=== PATIENT | female | born 1960 | race Hispanic/Latino ===

== ENCOUNTER 2022-09-08 09:56 | Emergency (ER) | payer OTHER | END 2022-09-08 12:50 | disposition home or self-care (01) | LOC: MADERS 09:56 | DX: S16.1XXA Strain of muscle, fascia and tendon at neck level, initial encounter (principal); S09.90XA Unspecified injury of head, initial encounter; W18.09XA Striking against other object with subsequent fall, initial encounter | CPT/HCPCS: 70450; 72125 ==